=== PATIENT | male | born 1950 | race Caucasian/White ===

== ENCOUNTER 2018-12-11 13:27 | Emergency (ER) | payer MEDICARE ==
[~2018-12-11] VITALS: Ht 175.3 cm; Wt 76.0 kg
[2018-12-11] MEDS ORDERED: HYDR25TA6 PO (14:08)
[2018-12-11] MEDS ORDERED: LISI5TAB7 PO (14:08)
[2018-12-11] MEDS ORDERED: INSU100I34 SQ (14:08)
[2018-12-11] MEDS ORDERED: NAPR500T8 PO (14:08)
[2018-12-11] MEDS ORDERED: ESOM40CA PO (14:08)
[2018-12-11] MEDS ORDERED: APIX5TAB PO (14:08)
[2018-12-11] MEDS ORDERED: ATEN50TA41 PO (14:08)
[2018-12-11] MEDS ORDERED: ALPR-475 PO (14:08)
[2018-12-11] MEDS ORDERED: ASPI-496 PO (14:08)
[2018-12-11] MEDS ORDERED: INSU100C5 SQ-INSULIN (14:08)
[2018-12-11] MEDS ORDERED: AMLO10TA8 PO (14:08)
[2018-12-11] MEDS ORDERED: ATOR40TA78 PO (14:08)
[2018-12-11 14:54] LABS: MICROSCOPIC NOT IND
[2018-12-11 14:57] LABS: CULTURE INDICATED? NO
[2018-12-11 14:57] LABS: BASOPHILS # (AUTO) 0.04 x10^3/uL (0-0.1); BASOPHILS % (AUTO) 0 % (0-1); EOSINOPHILS # (AUTO) 0.18 x10^3/uL (0-0.4); EOSINOPHILS % (AUTO) 2 % (1-7); LYMPHOCYTES # (AUTO) 2.15 x10^3/uL (1-3.4); LYMPHOCYTES % (AUTO) 25 % (22-44); MD NO; MEAN CORPUSCULAR HEMOGLOBIN 32.6 pg (27.5-34.5); MEAN CORPUSCULAR HGB CONC 33.9 g/dL (33.2-36.2); MEAN CORPUSCULAR VOLUME 96.3 fL (81-97); MEAN PLATELET VOLUME 7.2 fL (7.4-10.4); MONOCYTES # (AUTO) 0.97 x10^3/uL (0.2-0.8); MONOCYTES % (AUTO) 11 % (2-9); NEUTROPHILS # (AUTO) 5.28 x10^3/uL (1.8-6.8); NEUTROPHILS % (AUTO) 61 % (42-75); PLATELET COUNT 203 x10^3/uL (130-400); RED BLOOD COUNT 4.26 x10^6/uL (4.38-5.82); RED CELL DISTRIBUTION WIDTH 12.4 % (9.4-14.8)
--- NOTE | 2018-12-11 15:01 | NUR ---
pt upright on gurney awake & comfortable, responds approp ot staff, NAD, comfort measures provided, at BS, call light within reach.
[2018-12-11 15:06] LABS: ANION GAP 7 mmol/L (5-15); CALCIUM 9.7 mg/dL (8.5-10.1); CHLORIDE 101 mmol/L (98-107)
[2018-12-11 15:11] LABS: CREATININE 1.42 mg/dL (0.7-1.3); TROPONIN I < 0.015 ng/mL (0.000-0.045)
[2018-12-11 15:56] VITALS: BP 114/63
--- NOTE | 2018-12-11 15:56 | NUR ---
pt remains upright on gurney awake & comfortable, responds approp ot staff, NAD, comfort measures provided, at BS, call light within reach.
--- NOTE | 2018-12-11 16:23 | NUR ---
Patient given discharge instructions and they have confirmed that they understand the instructions. Patient ambulatory with steady gait.
== END 2018-12-11 16:30 | disposition home or self-care (01) ==
LOC: ED 14:21
DX: R06.00 Dyspnea, unspecified (principal); I10 Essential (primary) hypertension; E11.9 Type 2 diabetes mellitus without complications; Z95.0 Presence of cardiac pacemaker
CPT/HCPCS: 36415; 71045; 80048; 81003; 82040; 84484; 85025; 93005; 99284